=== PATIENT | male | born 1960 | race Caucasian/White ===

== ENCOUNTER 2018-10-13 21:01 | Inpatient (IN) | payer OTHER ==
[~2018-10-13] VITALS: Ht 175.3 cm; Wt 94.4 kg
--- NOTE | 2018-10-13 21:15 | NUR ---
PT BIBS. COMP OF "SENT BY PMD FOR ADMISSION FOR RECTAL BLEED'. NO SOB NOTED. NO ACUTE DISTRESS. AOX4. AWAITING MD MANZANARES
[2018-10-13 21:46] LABS: BASOPHILS # (AUTO) 0.1 /CMM (0.0-0.2); BASOPHILS % (AUTO) 1.2 % (0.0-2.0); EOSINOPHILS % (AUTO) 2.6 % (0.0-6.0); HEMATOCRIT 39 % (39-51); HEMOGLOBIN 13.1 g/dL (13.5-17.5); LYMPHOCYTES # (AUTO) 1.7 /CMM (0.8-4.8); LYMPHOCYTES % (AUTO) 23.5 % (20.0-44.0); MEAN CORPUSCULAR HGB CONC 34 g/dl (31.0-36.0); MEAN CORPUSCULAR VOLUME 93 fL (80-96); MONOCYTES # (AUTO) 0.5 /CMM (0.1-1.30); MONOCYTES % (AUTO) 7.3 % (2.0-12.0); NEUTROPHILS # (AUTO) 4.7 /CMM (1.8-8.9); NEUTROPHILS % (AUTO) 65.4 % (43.0-81.0); PLATELET COUNT (AUTO) 362 /CMM (150-450); RED BLOOD CELL COUNT(AUTO) 4.13 MIL/uL (4.5-6.0); WHITE BLOOD COUNT (AUTO) 7.2 K/uL (4.3-11.0)
[2018-10-13 21:55] LABS: CALCIUM, SERUM 9.1 mg/dL (8.5-10.1); CREATININE 1.4 mg/dL (0.6-1.3); POTASSIUM 3.9 mmol/L (3.5-5.1)
[2018-10-13 22:01] LABS: ALBUMIN 3.6 g/dL (3.4-5.0); BILIRUBIN,DIRECT 0.1 mg/dL (0.0-0.2); BILIRUBIN,TOTAL 0.4 mg/dL (0.2-1.0); TOTAL PROTEIN, SERUM 7.9 g/dL (6.4-8.2)
[2018-10-13] MEDS ORDERED: IOHEXOL-300 100 ML VIAL IV ONE (22:02)
[2018-10-13] MEDS ORDERED: CT SWABBABLE VALVE TRANS SET 1 EA INFUS.SET MC ONE (22:02)
[2018-10-13] MEDS ORDERED: IV NS 0.9% 250 ML IV ONE (22:02)
[2018-10-13] MEDS ORDERED: IV NS 0.9% 1,000 ML BAG IV ONE (22:30)
[2018-10-13 22:33] LABS: APPEARANCE,URINE Clear (CLEAR); BILIRUBIN,URINE Negative (NEGATIVE); BLOOD, URINE Negative Ery/uL (NEGATIVE); COLOR,URINE Yellow (YELLOW); KETONES,URINE Trace (NEGATIVE); LEUKOCYTE ESTERASE ,URINE Negative (NEGATIVE); NITRITE, URINE Negative (NEGATIVE); PH,URINE 5.5 (5.0-8.0); PROTEIN,URINE Trace mg/dl (NEGATIVE); UGLUCOSE Negative (NEGATIVE); UROBILINOGEN,URINE 0.2 EU/dL (0.2)
[2018-10-13] MEDS ORDERED: PIPERACILLIN /TAZOBACTAM 3.375 G VIAL IV ONE (22:43)
[2018-10-13] MEDS ORDERED: VANCOMYCIN 1 GM VIAL ONE (22:43)
[2018-10-13] MEDS ORDERED: VANCOMYCIN 1 GM in IV D5W 250 ML IV ONE (23:00)
[2018-10-13] MEDS ORDERED: PIPERACILLIN /TAZOBACTAM 3.375 G in IV D5W 50 ML IV ONE (23:00)
--- NOTE | 2018-10-13 23:08 | NUR ---
REPORT GIVEN TO LIA DURAN.
[2018-10-13] MEDS ORDERED: ONDANSETRON HCL/PF 4 MG/2 ML VIAL IVP PRN (23:30)
[2018-10-13] MEDS ORDERED: Z GUARD REMEDY 2 OZ OINT TP PRN (23:30)
[2018-10-13] MEDS ORDERED: MAGNESIUM HYDROXIDE 30 ML UDC PO PRN (23:30)
[2018-10-13] MEDS ORDERED: ACETAMINOPHEN 325 MG TABLET PO PRN (23:30)
[2018-10-13] MEDS ORDERED: DEXTROSE 50%-WATER 50 ML DISP.SYRIN IV PRN (23:30)
[2018-10-13] MEDS ORDERED: INSULIN REGULAR, HUMAN 100 UNIT/ML 3 ML VIAL SQ PRN (23:30)
[2018-10-13] MEDS ORDERED: HYDROMORPHONE INJ 2 MG/ML DISP.SYRIN IV PRN (23:30)
[2018-10-13] MEDS ORDERED: MAG HYDROX/AL HYDROX/SIMETH 30 ML UDC PO PRN (23:30)
[2018-10-13] MEDS ORDERED: HYDROCODONE/APAP 5/325MG 1 EACH TABLET PO PRN (23:30)
[2018-10-13] MEDS ORDERED: ZOLPIDEM TARTRATE 5 MG TABLET PO PRN (23:30)
[2018-10-13 23:41] LABS: BACTERIA,URINE Few /HPF (None Seen); RBC,URINE 0-2 /HPF (0-2); SQUAMOUS EPITHELIAL CELL,UR Rare /HPF (None Seen)
[2018-10-14] VITALS (8 sets, daily range): BP systolic 116–149; BP diastolic 61–92
--- NOTE | 2018-10-14 | NUR ---
RN NOTES ADMITTED PATIENT FROM ER VIA WHEELCHAIR, AWAKE, ALERT AND ORIENTED X4. PAIN AT TOLERABLE LEVEL AT THIS TIME, 4/10. DENIES NAUSEA AND VOMITING. IV ACCESS ON LEFT AC PATENT AND INTACT. KEPT PATIENT ON NPO ORDERED.SKIN ASSESSMENT DONE WITH PICTURE OF ANGELINA ANAL AREA TAKEN AND FILED IN THE CHART. PLAN OF CARE AND FALL PRECAUTION DISCUSSED WITH THE PATIENT AND VERBALIZED UNDERSTANDING. KEPT COMFORTABLE AND ATTENDED. WILL CONTINUE TO MONITOR PATIENT.
[2018-10-14] MEDS: IV NS 0.9% 1,000 ML IV PRN ×2 (00:41→18:20)
[2018-10-14] MEDS: BLOOD SUGAR DIAGNOSTIC 1 EACH STRIP IN SCH ×6 (00:46→23:28)
[2018-10-14] MEDS: PIPERACILLIN /TAZOBACTAM 3.375 G in IV D5W 50 ML IV SCH ×5 (00:58→23:23)
[2018-10-14] MEDS ORDERED: PIPERACILLIN /TAZOBACTAM 3.375 G VIAL IV ONE (05:37)
[2018-10-14 06:31] LABS: BASOPHILS # (AUTO) 0.1 /CMM (0.0-0.2); BASOPHILS % (AUTO) 1.3 % (0.0-2.0); EOSINOPHILS % (AUTO) 3.7 % (0.0-6.0); HEMATOCRIT 36 % (39-51); HEMOGLOBIN 12.1 g/dL (13.5-17.5); LYMPHOCYTES # (AUTO) 1.7 /CMM (0.8-4.8); LYMPHOCYTES % (AUTO) 33.8 % (20.0-44.0); MEAN CORPUSCULAR HGB CONC 34 g/dl (31.0-36.0); MEAN CORPUSCULAR VOLUME 93 fL (80-96); MONOCYTES # (AUTO) 0.4 /CMM (0.1-1.30); MONOCYTES % (AUTO) 7.9 % (2.0-12.0); NEUTROPHILS # (AUTO) 2.7 /CMM (1.8-8.9); NEUTROPHILS % (AUTO) 53.3 % (43.0-81.0); PLATELET COUNT (AUTO) 325 /CMM (150-450); RED BLOOD CELL COUNT(AUTO) 3.83 MIL/uL (4.5-6.0); WHITE BLOOD COUNT (AUTO) 5.1 K/uL (4.3-11.0)
[2018-10-14 06:46] LABS: ALBUMIN 3.1 g/dL (3.4-5.0); BILIRUBIN,TOTAL 0.3 mg/dL (0.2-1.0); CALCIUM, SERUM 8.4 mg/dL (8.5-10.1); CREATININE 1.1 mg/dL (0.6-1.3); MAGNESIUM 2.5 mg/dL (1.8-2.4); PHOSPHORUS 4.1 mg/dL (2.5-4.9); POTASSIUM 4.2 mmol/L (3.5-5.1); TOTAL PROTEIN, SERUM 6.9 g/dL (6.4-8.2)
--- NOTE | 2018-10-14 07:26 | NUR ---
RN NOTES PATIENT AWAKE, ON ROOM AIR AND TOLERATED WELL. PAIN AT TOLERABLE LEVEL, PAIN MEDS OFFERED AND DECLINED. KEPT NPO FOR POSSIBLE SURGERY TODAY. NO RECTAL BLEEDING NOTED, BROOKE ANAL ABSCESS VERY MINIMAL. DENIES NAUSEA AND VOMITING. ALL NEEDS ATTENDED. ENDORSED TO MORNING RN FOR CONTINUITY OF CARE.
[2018-10-14] MEDS ORDERED: HYDR-4384 PO (07:54)
[2018-10-14] MEDS ORDERED: AMOX1TAB16 PO (07:54)
[2018-10-14] MEDS ORDERED: IBUP-1953 PO (07:54)
[2018-10-14] MEDS ORDERED: SENN-168 PO (07:54)
--- NOTE | 2018-10-14 08:00 | NUR ---
MS RN NOTES PATIENT IN BED RESTING NO SOB OR ACUTE DISTRESS NOTED. PATIENT ALERT, ORIENTED X3 . PERIPHERAL IV INTACT PATENT. STATES PAIN IS TOLERABLE. PATIENT NPO AWAITING SURGERY. WILL CONTINUE TO MONITOR.
[2018-10-14] MEDS ORDERED: FEE PK DOSING 1 MIN EA MC ONE (08:27)
[2018-10-14] MEDS: PANTOPRAZOLE 40 MG VIAL IV SCH (09:31)
[2018-10-14] MEDS: VANCOMYCIN 1 GM in IV D5W 250 ML IV SCH ×2 (09:31→16:00)
[2018-10-14] MEDS ORDERED: MIDAZOLAM HCL 2 MG/2ML VIAL ONE (15:12)
[2018-10-14] MEDS ORDERED: FENTANYL PF 100MCG/2ML AMPUL ONE (15:13)
[2018-10-14] MEDS ORDERED: BUPIVACAINE MPF 0.5% W/EPI INJ 30 ML VIAL ONE (15:24)
[2018-10-14] MEDS ORDERED: LIDOCAINE HCL/PF 1% 30 ML SDV ONE (15:24)
[2018-10-14] MEDS ORDERED: BUPIVACAINE 0.5 % PF 150 MG/30 ML VIAL ONE (15:24)
[2018-10-14] MEDS ORDERED: SEVOFLURANE 250 ML BOTTLE IH ONE (16:20)
--- NOTE | 2018-10-14 17:30 | NUR ---
MS RN NOTES PATIENT RETURNED FROM OR IN STABLE CONDITION. WILL CONTINUE TO MONITOR.
--- NOTE | 2018-10-14 19:50 | NUR ---
MS RN NOTE PRN NORCO 5-325MG GIVEN FOR GENERALIZED PAIN. WILL CONT TO MONITOR.
--- NOTE | 2018-10-14 20:14 | NUR ---
MS RN NOTE RECEIVED PT IN STABLE CONDITION A&O X4. ABLE TO MAKE NEEDS KNOWN. NO SIGNS OF SOB/DISTRESS. ON RA TOLERATING WELL. ALL NEEDS CURRENTLY MET. SAFETY PRECAUTIONS IN PLACE: BED LOW, LOCKED, UPPER RAILS UP, CALL LIGHT WITHIN REACH. WILL CONT TO MONITOR.
--- NOTE | 2018-10-14 23:29 | NUR ---
MS RN NOTE PT REFUSED 0000 ACCUCHECK. STATED THAT HE IS NOT DIABETIC. RISKS AND BENEFITS EXPLAINED WITH VERBALIZATION OF UNDERSTANDING. WILL CONT TO MONITOR.
[2018-10-15] MEDS: VANCOMYCIN 1 GM in IV D5W 250 ML IV SCH ×2 (00:02→08:18)
[2018-10-15] MEDS: PIPERACILLIN /TAZOBACTAM 3.375 G in IV D5W 50 ML IV SCH ×2 (05:48→11:24)
[2018-10-15] MEDS: BLOOD SUGAR DIAGNOSTIC 1 EACH STRIP IN SCH ×2 (05:53→11:34)
--- NOTE | 2018-10-15 05:53 | NUR ---
MS RN NOTE PT REFUSED AM ACCUCHECK. STATING HE IS NOT A DIABETIC AND HE DOES NOT NEED BS CHECKS. RISK AND BENEFITS EXPLAINED WITH VERBALIZATION OF UNDERSTANDING.
--- NOTE | 2018-10-15 06:15 | NUR ---
MS RN NOTE PT IN STABLE CONDITION A&O X4. ABLE TO MAKE NEEDS KNOWN. NO SIGNS OF SOB/DISTRESS. ON RA TOLERATING WELL. ALL NEEDS CURRENTLY MET. SAFETY PRECAUTIONS IN PLACE: BED LOW, LOCKED, UPPER RAILS UP, CALL LIGHT WITHIN REACH. WILL CONT TO MONITOR AND ENDORSE TO NEXT SHIFT FOR WINDY.
[2018-10-15 07:06] LABS: CALCIUM, SERUM 8.5 mg/dL (8.5-10.1); CREATININE 1.1 mg/dL (0.6-1.3); POTASSIUM 4.3 mmol/L (3.5-5.1)
--- NOTE | 2018-10-15 07:35 | NUR ---
MS RN OPENING NOTES RECEIVED PT LAYING IN BED, RESTING COMFORTABLY. PT IS A/O X4. RESPIRATIONS ARE EVEN AND UNLABORED, NOT IN ANY ACUTE DISTRESS NOTED. PT DENIES ANY PAIN AT THIS TIME, NO C/O SOB, N/V. IV SITE TO LAC INTACT, NO INFILTRATION NOTED. DRESSING KEPT CLEAN AND DRY. SAFETY MEASURES ARE IN PLACE. INSTRUCTED PT TO USE CALL LIGHT WHEN ASSISTANCE IS NEEDED, CALL LIGHT IS LEFT WITHIN REACH. WILL MONITOR THROUGHOUT SHIFT FOR CONTINUITY OF CARE.
[2018-10-15 08:00] VITALS: BP 127/71
[2018-10-15 08:08] VITALS: BP 127/71
[2018-10-15] MEDS: PANTOPRAZOLE 40 MG VIAL IV SCH (08:18)
[2018-10-15] MEDS ORDERED: DAKINS QUARTER STRENGTH (0.125%) 480 ML BOTTLE TOP SCH (09:00)
--- NOTE | 2018-10-15 11:00 | NUR ---
MS RN NOTES-- PT SEEN AND EXAMINED BY PROPERTY ASSISTANT STUDENT OF DR. WHALEY.
--- NOTE | 2018-10-15 11:35 | NUR ---
MS RN NOTES-- PT REFUSED BLOOD SUGAR CHECK AND STATED THAT HE "NEVER HAD TO CHECK MY OWN BLOOD SUGAR. IM FINE. I DONT NEED IT." EXPLAINED THE IMPORTANCE OF CHECKING BLOOD SUGAR, PT STILL REFUSED. NO S/SX OF HYPO/HYPERGLYCEMIA AT THIS TIME.
--- NOTE | 2018-10-15 12:30 | NUR ---
MS RN NOTES-- CALLED DR. ABDI RE: PT WANTING TO LEAVE. PER DR. ABDI, HE WILL BE IN WITHIN AN HOUR AND WANTS TO SEE THE PATIENT PERSONALLY. PT MADE AWARE AND IS VERY ADAMANT ABOUT LEAVING.
--- NOTE | 2018-10-15 14:26 | NUR ---
MS RN NOTES-- PT SEEN AND EXAMINED BY DR. TRINIDAD Morton/ ORDERS FOR DISCHARGE TO HOME.
--- NOTE | 2018-10-15 14:30 | NUR ---
MS ELECTRIC RANGE ASSEMBLER NOTE PT DISCHARGED TO HOME IN MEDICALLY STABLE CONDITION. PT IS AMBULATORY, A/O X4, AFEBRILE. RESPIRATIONS ARE EVEN AND UNLABORED, NOT IN ANY ACUTE DISTRESS NOTED. DENIES ANY PAIN, SOB N/V. ABDOMEN IS SOFT AND NONDISTENDED, BOWEL SOUNDS ARE PRESENT, HYPOACTIVE IN ALL 4 QUADRANTS. DENIES ANY BLADDER DISCOMFORT. IV SITE REMOVED, APPLIED PRESSURE AND TOLERATED WELL. ID BAND REMOVED. DRESSING CHANGE DONE TO SACRAL PER ORDERS. PICTURES TAKEN AND PLACED IN CHART. EXPLAINED DISCHARGE PAPERWORK TO PT WITH VERBAL AND WRITTEN UNDERSTANDING. PT LEFT IN STABLE CONDITION ACCOMPANIED BY 1 STAFF ASSIST TO PERSONAL VEHICLE.
== END 2018-10-15 14:30 | disposition home or self-care (01) | DRG 347 ==
LOC: ER 21:05 → MEDSG2 23:05
PROVIDERS: ADMIT Nurse Practitioner Acute Care; ATTEND Nurse Practitioner Acute Care
PROC: 0D9QXZZ Drainage of Anus, External Approach (ICD-10-PCS; principal; 2018-10-14)
PROC: 0DJD8ZZ Inspection of Lower Intestinal Tract, Via Natural or Artificial Opening Endoscopic (ICD-10-PCS; principal; 2018-10-14)
PROC: 0DQQXZZ Repair Anus, External Approach (ICD-10-PCS; principal; 2018-10-14)
DX: K61.0 Anal abscess (principal); N17.0 Acute kidney failure with tubular necrosis; K60.3 Anal fistula; K57.90 Diverticulosis of intestine, part unspecified, without perforation or abscess without bleeding; N28.1 Cyst of kidney, acquired; Z68.31 Body mass index [BMI] 31.0-31.9, adult; E78.5 Hyperlipidemia, unspecified; D64.9 Anemia, unspecified; E83.51 Hypocalcemia; Z87.891 Personal history of nicotine dependence
CPT/HCPCS: 36415; 71045-TC; 80048-TC; 80053-TC; 80061-TC; 80076-TC; 81000-TC; 82962-TC; 83735-TC; 84100-TC; 85025-TC; 85730-TC; 87070-TC; 87081-TC; 87186-TC; A4217; A6253; A6402; A6403; A6407; C9113; G0378; J1815; J2250; J2405; J2543; J2704; J3010; J3370; J3490; J7030; J7050; J7060; Q9967

== ENCOUNTER 2022-03-15 11:42 | Emergency (ER) | payer OTHER ==
[~2022-03-15] VITALS: Ht 175.3 cm; Wt 97.5 kg
[~2022-03-15 11:42] MED LIST: AMOX1TAB16 PO; HYDR-4384 PO; IBUP-1953 PO; SENN-261 PO
--- NOTE | 2022-03-15 12:08 | NUR ---
To ER bed 4, "I Have CHF been having SOB for years - worse today. Also rash on R side", aaox3, breathing even and non labored, connected to monitor, awaiting md suazo
--- NOTE | 2022-03-15 12:13 | NUR ---
DR PORTILLO AT BEDSIDE
--- NOTE | 2022-03-15 12:26 | NUR ---
CERAMIC TILER AT BEDSIDE FOR XRAY
[2022-03-15 12:43] LABS: BASOPHILS % (AUTO) 0.5 % (0.0-2.0); EOSINOPHILS % (AUTO) 1.2 % (0.0-6.0); HEMATOCRIT 41 % (39-51); HEMOGLOBIN 13.9 g/dL (13.5-17.5); LYMPHOCYTES # (AUTO) 1.7 K/uL (0.8-4.8); LYMPHOCYTES % (AUTO) 24.4 % (20.0-44.0); MEAN CORPUSCULAR HGB CONC 34 g/dl (31.0-36.0); MEAN CORPUSCULAR VOLUME 95 fL (80-96); MONOCYTES # (AUTO) 0.4 K/uL (0.1-1.30); MONOCYTES % (AUTO) 5.4 % (2.0-12.0); NEUTROPHILS # (AUTO) 4.7 K/uL (1.8-8.9); NEUTROPHILS % (AUTO) 68.5 % (43.0-81.0); PLATELET COUNT (AUTO) 192 K/uL (150-450); RED BLOOD CELL COUNT(AUTO) 4.31 MIL/uL (4.5-6.0); WHITE BLOOD COUNT (AUTO) 6.9 K/uL (4.3-11.0)
[2022-03-15 12:57] LABS: D-DIMER 0.27 mg/L(FEU (0.17-0.50)
[2022-03-15 13:11] LABS: CALCIUM, SERUM 9.1 mg/dL (8.5-10.1); CARBON DIOXIDE 24 mmol/L (21-32); CHLORIDE 101 mmol/L (98-107); CREATININE 1.2 mg/dL (0.6-1.3); GLUCOSE 158 mg/dL (74-106); POTASSIUM 4.5 mmol/L (3.5-5.1); SODIUM SERUM 135 mmol/L (136-145); UREA NITROGEN, BLOOD 17 mg/dL (7-18)
[2022-03-15] MEDS ORDERED: predniSONE 20 MG TABLET PO ONE (14:30)
[2022-03-15] MEDS ORDERED: IPRATROPIUM NEB FS 0.5 MG/2.5 ML AMPUL.NEB NEB ONE (14:30)
[2022-03-15] MEDS ORDERED: ALBUTEROL FS 2.5 MG/3 ML VIAL.NEB NEB ONE (14:30)
[2022-03-15] MEDS ORDERED: FLUT1BLS6 INH (14:39)
[2022-03-15] MEDS ORDERED: SACU1TAB4 PO (14:39)
[2022-03-15] MEDS ORDERED: FURO20TA4 PO (14:39)
[2022-03-15] MEDS ORDERED: ROSU20TA32 PO (14:39)
[2022-03-15] MEDS ORDERED: CARV12.52 PO (14:39)
[2022-03-15] MEDS ORDERED: DOLU50TA PO (14:39)
[2022-03-15] MEDS ORDERED: EMTR1TAB17 PO (14:39)
[2022-03-15] MEDS ORDERED: LEVA15HF6 INH (14:39)
[2022-03-15] MEDS ORDERED: predniSONE 20 MG TABLET ONE (15:03)
[2022-03-15] MEDS ORDERED: ALBUTEROL FS 2.5 MG/3 ML VIAL.NEB ONE (15:08)
[2022-03-15] MEDS ORDERED: IPRATROPIUM NEB FS 0.5 MG/2.5 ML AMPUL.NEB ONE (15:08)
[2022-03-15] MEDS ORDERED: PRED50TA PO (15:41)
--- NOTE | 2022-03-15 16:26 | NUR ---
IV removed. Catheter intact and site benign. Pressure and 4x4 applied to site. No bleeding noted.Patient discharged to home in stable condition. Written and verbal after care instructions given. Patient verbalizes understanding of instruction.
[2022-03-15 16:27] VITALS: BP 131/90
== END 2022-03-15 16:28 | disposition home or self-care (01) ==
LOC: ER 11:56
DX: R07.89 Other chest pain (principal); R06.02 Shortness of breath; I50.9 Heart failure, unspecified; Z79.899 Other long term (current) drug therapy
CPT/HCPCS: 36415; 71045; 80048; 83880; 84484 ×2; 85025; 85378; 85730; 93005 ×2; 94640; 99285; J7512

== ENCOUNTER 2025-07-29 13:43 | Emergency (ER) | payer OTHER ==
[~2025-07-29] VITALS: Ht 175.3 cm; Wt 87.5 kg
[~2025-07-29 13:43] MED LIST changes: -AMOX1TAB16 PO; +CARV12.52 PO; +DOLU50TA PO; +EMTR1TAB17 PO; +FLUT1BLS6 INH; +FURO20TA4 PO; -HYDR-4384 PO; -IBUP-1953 PO; +LEVA15HF6 INH; +PRED50TA PO; +ROSU20TA32 PO; +SACU1TAB4 PO; -SENN-261 PO
[2025-07-29 14:34] LABS: PLATELET COUNT (AUTO) 163 K/uL (150-450); RED BLOOD CELL COUNT(AUTO) 4.91 MIL/uL (4.5-6.0); RED CELL DISTRIBUTION WIDTH 13.3 % (11.5-15.0); WHITE BLOOD COUNT (AUTO) 8.6 K/uL (4.3-11.0)
[2025-07-29 14:39] LABS: CALCIUM, SERUM 8.5 mg/dL (8.5-10.1); CREATININE 1.1 mg/dL (0.6-1.3); SODIUM SERUM 143.0 mmol/L (136-145); UREA NITROGEN, BLOOD 26.0 mg/dL (7-18)
[2025-07-29 14:48] LABS: INR 1.0 (0.91-1.10)
[2025-07-29] MEDS ORDERED: AMOX-430 PO (16:03)
[2025-07-29] MEDS ORDERED: ACETAMINOPHEN 325 MG TABLET ONE (16:30)
[2025-07-29] MEDS ORDERED: AMOX/CLAVULANATE 875 MG TABLET ONE (16:31)
[2025-07-29] MEDS: AMOX/CLAVULANATE 875 MG TABLET PO ONE (16:39)
[2025-07-29] MEDS: ACETAMINOPHEN 325 MG TABLET PO ONE (16:40)
[2025-07-29 17:00] VITALS: BP 128/70; TEMP 97.7; O2SAT 97
== END 2025-07-29 17:01 | disposition home or self-care (01) ==
LOC: ER 13:43
DX: R04.0 Epistaxis (principal); F17.290 Nicotine dependence, other tobacco product, uncomplicated; I25.10 Atherosclerotic heart disease of native coronary artery without angina pectoris; I50.9 Heart failure, unspecified; Z79.52 Long term (current) use of systemic steroids; Z79.624 Long term (current) use of inhibitors of nucleotide synthesis; Z79.899 Other long term (current) drug therapy; Z87.19 Personal history of other diseases of the digestive system; Z95.0 Presence of cardiac pacemaker; Z95.5 Presence of coronary angioplasty implant and graft
CPT/HCPCS: 99284; 30901; 85025; 80048; 36415; 85730; A6403; A4217